=== PATIENT | female | born 1935 | race Caucasian/White ===

== ENCOUNTER 2017-12-18 17:28 | Outpatient (REF) | payer MEDICARE, OTHER, SELFPAY ==
[2017-12-18 20:45] LABS: Anion Gap 9.5 mmol/L (3-11); BUN 31 mg/dL (7-18); CO2 28.5 mmol/L (21.0-32.0); CREATININE 1.09 mg/dL (0.55-1.02); Calcium 9.8 mg/dL (8.5-10.1); Chloride 99 mmol/L (98-107); Glucose 92 mg/dL (70-100); Potassium 3.8 mmol/L (3.5-5.1); Sodium 137 mmol/L (136-145); TSH 2.47 uIU/mL (0.358-3.74)
== END 2017-12-18 17:48 ==
LOC: NCHCN 17:28
PROVIDERS: PCP Internal Medicine; Visit Provider Internal Medicine
DX: E78.5 Hyperlipidemia, unspecified (principal); I10 Essential (primary) hypertension
CPT/HCPCS: 80048; 84443

== ENCOUNTER → 2018-07-02 09:56 | Outpatient (BNVA) | payer MEDICARE, OTHER, SELFPAY | PROVIDERS: PCP Internal Medicine; Visit Provider Orthopaedic Surgery | DX: Z47.1 Aftercare following joint replacement surgery (principal); Z96.643 Presence of artificial hip joint, bilateral; Z96.651 Presence of right artificial knee joint | CPT/HCPCS: 99211; 99212 ==

== ENCOUNTER 2020-06-29 14:30 | Outpatient (CLI) | payer MEDICARE, OTHER, SELFPAY | END 2020-06-29 14:31 | LOC: OCO 07-22 07:05 | PROVIDERS: PCP Internal Medicine; Visit Provider Physician Assistant Surgical | DX: M54.5 Low back pain (principal); M25.551 Pain in right hip; M25.552 Pain in left hip; Z96.643 Presence of artificial hip joint, bilateral; Z96.651 Presence of right artificial knee joint | CPT/HCPCS: 99213 ==

== ENCOUNTER 2020-07-07 17:32 | Outpatient (REF) | payer MEDICARE, OTHER, SELFPAY ==
[2020-07-07 19:01] LABS: Hemoglobin A1C 5.5 % (<5.7)
[2020-07-07 19:03] LABS: Anion Gap 10.7 mmol/L (3-11); BUN 29 mg/dL (7-18); CO2 27.3 mmol/L (21.0-32.0); CREATININE 1.2 mg/dL (0.55-1.02); Calcium 9.8 mg/dL (8.5-10.1); Chloride 102 mmol/L (98-107); Glucose 102 mg/dL (74-106); Sodium 140 mmol/L (136-145); TSH 2.21 uIU/mL (0.36-3.74)
== END 2020-07-07 17:33 | disposition home or self-care (01) ==
LOC: NCHCN 17:32
PROVIDERS: PCP Internal Medicine; Visit Provider Internal Medicine
DX: I10 Essential (primary) hypertension (principal); R73.03 Prediabetes
CPT/HCPCS: 80048; 83036; 84443

== ENCOUNTER 2020-12-23 03:17 | Outpatient (CLI) | payer MEDICARE, OTHER, SELFPAY ==
[2020-12-23 12:35] LABS: Source Nasal/Nares
[2020-12-23 20:16] LABS: COVID-19 PCR Negative (Negative)
== END 2020-12-23 03:18 | disposition home or self-care (01) ==
LOC: LBO 03:17
PROVIDERS: PCP Internal Medicine; Visit Provider Ophthalmology
DX: Z20.822 Contact with and (suspected) exposure to COVID-19 (principal); Z01.818 Encounter for other preprocedural examination
CPT/HCPCS: 87635

== ENCOUNTER 2020-12-26 10:17 | Day surgery (SDC) | payer MEDICARE, OTHER, SELFPAY ==
--- NOTE | 2020-12-26 06:42 | ANES.PREOP_ITS ---
General Info Date of Service Date Performed: 12/26/20 Height: 5 ft 6 in Weight: 78.018 kg Body Mass Index (BMI): 27.7 Surgical Procedure: Operation Date: 12/26/20 13:40 Proposed Procedures Side Surgeon p Intraocular Stent Placement/IOL Implant Left Jere Michael MD Meds Allergies and Home Medications Allergies Allergy/AdvReac Type Severity Reaction Status Date / Time bee venom protein (honey bee) Allergy Severe Anaphylaxsi Unverified 12/26/20 10:54 s latex Allergy Intermediate Itching Unverified 12/26/20 10:54 lisinopril Allergy Unknown Other (See Unverified 12/26/20 10:54 Comment) Sulfa (Sulfonamide AdvReac Intermediate Nausea Unverified 12/26/20 10:54 Antibiotics) Home Medication Medication Instructions Recorded aspirin [Aspir 81] 81 mg PO DAILY 06/15/16 atorvastatin [Lipitor] 40 mg PO DAILY 06/15/16 diltiazem HCl [Taztia Xt] 360 mg PO DAILY 06/15/16 epinephrine [Epipen 2-Angelo] 0.3 mg IM DIRECTED 06/15/16 losartan 100 mg PO HS 06/15/16 triamterene-hydrochlorothiazid 1 ea PO DAILY 06/15/16 calcium carbonate-vitamin D3 1 ea PO DAILY 06/18/16 [Calcium 600 + Vit D Softgel] diphenhydramine HCl 25 mg PO PRN PRN 06/18/16 latanoprost 1 drp OU HS 06/18/16 lcaxppnz-dma-AP-lycopen-lutein 1 ea PO DAILY 06/18/16 [Centrum Silver Tablet] dorzolamide-timolol 1 drp OPHTHALMIC (EYE) BID 12/26/20 Current Visit Medications: Current Medications Generic Name Dose Route Start Last Admin Trade Name Freq PRN Reason Stop Dose Admin Acetaminophen 1,000 mg 12/26/20 06:00 Acetaminophen 500 Mg Tab PO Q4H PRN PRN Miscellaneous Medication 0 ml 12/26/20 06:00 Prednisolone 1%, Moxifloxacin 0.5%, Nepafenac 0.1% 5ml Btl OS DIRECTED [facility] Miscellaneous Medication 0 ml 12/26/20 06:00 Tropicam./Phenyleph. (1/2.5%) 5 Ml Btl OS DIRECTED OBED Tetracaine HCl 0 ml 12/26/20 06:00 Tetracaine 0.5% 4 Ml Btl OS DIRECTED [facility] Active Problems Active Problems: Problem Status Onset Code Nuclear sclerotic cataract of left eye H25.12 Medical History Medical History (Updated 12/26/20 @ 10:54 by Amaya Lin) Cataract CKD (chronic kidney disease), stage II Depression Dysthymia Glaucoma HLD (hyperlipidemia) HTN (hypertension) Hx of ectopic HX: breast cancer Hymenoptera reaction Mitral regurgitation 1-2 plus=pt. states she has had this all her life, was told in the 80's never had any issues Osteopenia Surgical History Surgical History (Updated 12/26/20 @ 10:52 by Amaya Lin) History of arthroplasty of right knee Hx of appendectomy Hx of bilateral hip replacements Hx of mastectomy Tobacco Smoking/Tobacco Use Status: Former Tobacco Use Alcohol Alcohol Intake: current Alcohol intake frequency: 0-2 drinks per day Alcohol type: wine Substance Use Substance use: Never Substance use type: does not use Vital Signs and Lab Results Vital Signs Most Recent Vital Signs in EMR: Temp Pulse Resp BP Pulse Ox 36.2 C L 66 16 157/80 H 99 12/26/20 11:03 12/26/20 11:03 12/26/20 11:03 12/26/20 11:03 12/26/20 11:03 Lab Results Blood Type / Crossmatch: No Data to Display Complete Blood Count: No Data to Display Complete Metabolic Panel: No Data to Display Liver Function Panel: No Data to Display Coagulation Panel: No Data to Display Cardiac Panel: No Data to Display Arterial Blood Gas: No Data to Display Venous Blood Gas: No Data to Display Pancreas Panel: No Data to Display Thyroid Panel: No Data to Display Infectious Disease: Coronavirus (COVID-19)(PCR) Negative (Negative) 12/23/20 10:22 12/23/20 Coronavirus 2019 Source Nasal/Nares 12/23/20 10:22 12/23/20 Blood Cultures: No Data to Display Toxicology Panel: No Data to Display Anesthesia Assessment and Plan Anesthesia History Personal History: No History of Anesthesia Complications Family History: No Family History of Anesthesia Complications Exercise Tolerance Exercise Tolerance: Metabolic Equivalents>4 Cardiac & Pulmonary Exam Cardiac Exam: Normal S1/S2 Heart Sounds Pulmonary Exam: Clear Bilateral Breath Sounds Implantable Cardiac Device Does patient have a Pacemaker or an ICD?: No Airway Exam Known Difficult Airway: No Mallampati Class: 2 Mouth Opening: Normal (> 3cm) Thyromental Distance: Greater than 3 cm Neck Range of Motion: Full ROM Neck Circumference: Normal Teeth Condition: Removable Dentures/Plates Lower ASA Classification ASA Score: ASA 2 Emergency Case?: No NPO Status NPO Status: NPO Clears >2 hours, Solids >8 hours Anesthesia Plan Resuscitation Status: Full Code Anesthesia Technique: MAC Anesthesia Airway Planned: Natural Airway Monitors Used: Standard Monitors Preoperative Comments:: 85 yo female for cataract removal. Sig PMHx: CKD II, HTN (dilt/losartan), mitral regurg. plan: MAC/No MKO
[2020-12-26 10:51] VITALS: BMI 27.7
[2020-12-26] MEDS: Tropicam./Phenyleph. (1/2.5%) 5 ML BTL OS ×3 (11:00→11:20)
[2020-12-26 11:03] VITALS: BP 157/80; PULSE 66; RESP 16; TEMP 36.2; O2SAT 99
[2020-12-26] MEDS: Tetracaine 0.5% 4 ML BTL OS (11:43)
[2020-12-26] MEDS: Lidocaine 2% Jelly 6 ML SYR (11:43)
[2020-12-26] MEDS: Povidone-Iodine Ophth 30 ML BTL (11:44)
[2020-12-26] MEDS: Lidocaine 1% Pres-Free 5 ML VIAL (11:50)
[2020-12-26] MEDS: Balanced Salt Soln.-PLUS 500 ML BAG (11:54)
[2020-12-26] MEDS: Duovisc Viscoelastic System EACH 1 EACH (11:55)
[2020-12-26 12:17] VITALS: BP 151/77; PULSE 79; RESP 1; TEMP 36.5; O2SAT 97
--- NOTE | 2020-12-26 12:18 | PDOC.DSDIS_ITS ---
Discharge Plan Disposition Patient Disposition: HOME Condition: Good Discharge Details Attending Provider: Jere Michael Primary Care Provider: Newton Stephenson [place] Meds and New Rx's Prescriptions: No Action atorvastatin [Lipitor] 40 MG tablet 40 mg PO DAILY RF: 0 diltiazem HCl [Taztia XT] 360 MG capsule,extended release 24 hr 360 mg PO DAILY RF: 0 aspirin [Aspir-81] 81 MG tablet,delayed release (DR/EC) 81 mg PO DAILY RF: 0 triamterene-hydrochlorothiazid 1 EACH capsule 1 ea PO DAILY RF: 0 epinephrine [EpiPen 2-Angelo] 0.3 MG/0.3 ML auto-injector 0.3 mg IM DIRECTED RF: 0 losartan 100 MG tablet 100 mg PO HS RF: 0 latanoprost 2.5 ML drops 1 drp OU HS RF: 0 diphenhydramine HCl 25 MG capsule 25 mg PO PRN PRNRF: 0 Centrum Silver 1 EACH tablet 1 ea PO DAILY RF: 0 calcium carbonate-vitamin D3 [Calcium 600 with Vitamin D3] 1 EACH capsule 1 ea PO DAILY RF: 0 dorzolamide-timolol 22.3-6.8 mg/mL drops 1 drp ophthalmic (eye) BID RF: 0 Discharge Instructions Stand Alone Forms: Post-op Topical Cataract, [place] Gutiérrez (DSU) Discharge Orders Discharge Orders: Discharge Order (Routine); Ordered 12/26/20 Ordered By: Jere Michael DS: Diagnosis Discharge Diagnosis (1) Nuclear sclerotic cataract of left eye: Status: Resolved (2) Primary open-angle glaucoma, left eye, moderate stage: Status: Chronic
--- NOTE | 2020-12-26 12:19 | ROE_ITS ---
Date of service: 12/26/20 Time of Service: 12:19 Operative Note Operative Note DATE OF PROCEDURE: 12/26/20 PRE-OP DIAGNOSIS: Nuclear cataract, left eye Primary open-angle glaucoma, left eye, moderate stage PROCEDURE: 1. Cataract extraction using phacoemulsification with intraocular lens implant, left eye 2. Insertion of multiple anterior segment aqueous drainage devices (Glaukos iStent inject x 2) into trabecular meshwork, left eye SURGEON: Jere Michael ANESTHESIA TYPE: Local By Surgeon and MAC Refer to Anesthesia Record ESTIMATED BLOOD LOSS: 0 PATHOLOGY: none sent COMPLICATIONS: None Patient was transported to: same day Patient's condition: stable Implants: 1. [employer] / [employer] Tecnis ZCB00 intraocular lens 2. Glaukos iStent inject trabecular micro-bypass stent x 2 Indications: 1. Progressive decreased vision due to cataract, left eye 2. Primary open angle glaucoma, left eye, moderate stage Procedure Description: CATARACT SURGERY OPERATIVE REPORT PREOPERATIVE DIAGNOSIS: Nuclear cataract, left eye Primary open-angle glaucoma, left eye, moderate stage POSTOPERATIVE DIAGNOSIS: Same OPERATION: 1. Cataract extraction using phacoemulsification with posterior chamber intraocular lens implant, left eye. 2. Insertion of multiple anterior segment aqueous drainage devices (Glaukos iStent inject x 2) into trabecular meshwork, left eye IOL: IOL Product Development Engineer/Model: [employer] Vision / YEN Tecnis ZCB00 IOL Power: + 20.0 diopters IOL Serial Number: [id number] Optic Diameter: 6.0mm Haptic/Overall Diameter: 13.0mm PHACO INFO: Drew Centurion Vision System with OZil and Active Fluidics Cumulative Dispersed Energy (CDE): 13.83 seconds TRABECULAR MICRO-BYPASS STENT INFO: Glaukos iStent inject x 2 Reference Number: [id number] Serial Number: [id number] SURGEON: Jere Michael MD, JULY ANESTHESIA: Monitored Anesthesia Care (MAC), with local sub-tenon's anesthetic infiltration COMPLICATIONS: None SPECIMENS: None INDICATIONS FOR PROCEDURE: The patient is an 85-year-old lady with history of bilateral cataracts and glaucoma. She has developed a significant nuclear cataract in the left eye and desires cataract surgery and attempt to improve and maximize her vision. She has a history of primary open-angle glaucoma, left eye worse than right, currently managed on 3 medications in both eyes. The option of cataract surgery was offered to the patient and she wished to proceed. In addition, the option of microtrabecular bypass stent at the time of cataract surgery was also offered to the patient and she wished to proceed with this as well. PROCEDURE: The correct surgical eye was identified and marked as the left eye and the pupil was dilated in the preoperative area using mydriatics and cycloplegics. The dilated pupil size was 8.0 mm. She elected to proceed without oral sedation. The patient was brought to the operating room where cardiopulmonary monitoring was instituted and surgical time-out was performed, confirming the correct operative eye and IOL power. Topical anesthesia was administered and ophthalmic povidone-iodine 5% was instilled into the conjunctival fornices. Lidocaine gel was applied to the cornea and the natalie-ocular area was prepped with Betadine 10% solution and draped in the usual sterile fashion for intraocular surgery, including an aperture drape. A Tegaderm transparent film dressing was cut in half and used to cover the lashes and lid margins. Care was taken to sequester the lashes and lid margins under the Tegaderm dressing. A lid speculum was placed between the lids of the operative eye and the Giancarlo-Nelida operating microscope was maneuvered into position. Reji scissors were then used to make a conjunctival buttonhole approximately 6mm posterior to the limbus in the inferonasal quadrant. Blunt dissection was carried out to expose bare sclera, and a blunt-tipped sub-tenon?s anesthesia cannula was introduced and passed posteriorly along the globe where non- preserved plain lidocaine was injected into posterior sub-Tenon?s space. A sideport knife was used to make a paracentesis port superior/superiortemporally. Intraocular phenylephrine/lidocaine was injected into the anterior chamber. The anterior chamber was then filled with viscoelastic. A 2.4mm keratome knife was used to create a half-thickness groove at the limbus and then to construct a three-plane near-clear corneal tunnel extending 2.0mm into clear cornea in the temporal position. . A flap was raised on the anterior capsule and capsulorhexis forceps were used to complete a continuous curvilinear capsulorhexis of 5.0 mm. Balanced salt solution was then used to perform cortical cleaving hydrodissec tion and nuclear hydrodelineation until the lens could be freely rotated within the capsular bag. The lens nucleus was then disassembled and removed within the capsular bag and iris plane using phacoemulsification. Residual cortical material was removed using the 45-degree angled silicone I/A tip with 0.3mm port. The posterior capsule was carefully polished to remove as much residual lens epithelial cells as safely possible. The capsular bag was then inflated and the anterior chamber deepened with viscoelastic. The lens implant described above was inserted into the capsular bag using the YEN Alamo Injector. A Kuglen hook was used to dial the IOL into position. The anterior chamber was then slightly over-filled with viscoelastic. The microsope and the patient's head were tilted into the ideal position for viewing of the anterior chamber angle. Viscoelastic was placed on the cornea followed by a surgical gonionlens, and the anterior chamber angle landmarks were identified. The Cloudjutsuukos iStent inject handpiece was introduced into the anterior chamber and the insertion sleeve was retracted once the injector was distal to the pupillary margin. The trocar was advanced through the central portion of the trabecular meshwork and into the back wall of Schlemm's canal in the superiornasal quadrant, with care taken to ensure the micro-insertion tube was perpendicular to the trabecular meshwork. The trabecular meshwork was lightly dimpled and the stent was injected without difficulty. The same procedure was then performed in the inferiornasal quradrant. Both stents were then examined and noted to be in good position within the trabecular meshwork. [] The microscope and the patients head were returned to the normal coaxial position. Viscoelatic was then removed from the anterior chamber using the I/A handpiece. The lens implant was noted to center nicely within the capsular bag. The incisions were stromally hydrated, and the anterior chamber was reformed using BSS. Then 0.5cc of moxifloxacin 1.0mg/ml were injected into the capsular bag and anterior chamber. The incisions were checked with a Weck spear and found to be secure. Several drops of ophthalmic povidone-iodine 5% were then applied to the eye followed by two drops of Imprimis combination prednisolone/moxifloxacin/nepafenac solution. The drapes were removed and a clear plastic protective eye shield was placed over the eye. The patient was then returned to Same Day Surgery in stable condition.
--- NOTE | 2020-12-26 12:25 | W.ANESPOSTOP ---
Postoperative Evaluation Date, Time and Location Date Performed: 12/26/20 Time Performed: 12:26 Patient Location: Day Surgery Unit Vital Signs Most Recent Imported Vital Signs: Most Recent Vital Signs Temp Pulse Resp BP Pulse Ox 36.5 C 79 1 L 151/77 H 97 12/26/20 12:17 12/26/20 12:17 12/26/20 12:17 12/26/20 12:17 12/26/20 12:17 Pain Score Most Recent Pain Score: Most Recent Pain Score Pain Level 0 12/26/20 12:17 Assessment Mental Status: Awake (Alert & Oriented to Patient Baseline) Airway and Respiratory Function: Patent airway with normal (patient baseline) respiratory exam Cardiovascular Function: Hemodynamically Stable Hydration Status: Adequately Hydrated Nausea & Vomiting: No Nausea or Vomiting Pain: Pt. Denies Any Pain Peripheral Nerve Block: Patient did not receive a nerve block
== END 2020-12-26 12:40 | disposition home or self-care (01) ==
PROVIDERS: PCP Internal Medicine; Visit Provider Ophthalmology
PROC: (CPT 66984; principal; 2020-12-26 13:30)
DX: H25.12 Age-related nuclear cataract, left eye (principal); H40.1122 Primary open-angle glaucoma, left eye, moderate stage
CPT/HCPCS: 66984; 0191T; V2632; C1783

== ENCOUNTER 2021-04-13 20:03 | Outpatient (REF) | payer MEDICARE, OTHER, SELFPAY ==
[2021-04-13 19:27] LABS: HGB 14.2 g/dL (11.2-15.7); MCHC 32.3 % (32.0-36.0); MCV 96.1 fL (80-95); MPV 9.7 fL (8.0-11.0); Platelet Count 325 10^3/uL (130-400); RBC 4.58 10^6/uL (3.93-5.22); RDW 13.1 % (11.7-14.6); RDW-SD 46.9 fL; WBC 6.33 10^3/uL (4.4-10.8)
[2021-04-13 19:38] LABS: ALT 26 U/L (14-59); Anion Gap 9.3 mmol/L (3-11); BUN 25 mg/dL (7-18); CO2 25.7 mmol/L (21.0-32.0); CREATININE 1.1 mg/dL (0.55-1.02); Calcium 9.3 mg/dL (8.5-10.1); Calculated LDL 87 mg/dL (<100); Chloride 104 mmol/L (98-107); Cholesterol 194 mg/dL (<200); Estimated GFR 47.32 (mL/min/1.73m2); Glucose 113 mg/dL (74-106); HDL Cholesterol 89 mg/dL (40-60); Potassium 3.7 mmol/L (3.5-5.1); Sodium 139 mmol/L (136-145); Triglyceride 94 mg/dL (<150)
== END 2021-04-13 20:04 | disposition home or self-care (01) ==
LOC: LBN 20:03
PROVIDERS: PCP Internal Medicine; Visit Provider Internal Medicine
DX: I10 Essential (primary) hypertension (principal); F32.0 Major depressive disorder, single episode, mild; N18.2 Chronic kidney disease, stage 2 (mild); H26.9 Unspecified cataract
CPT/HCPCS: 80048; 80061; 85027; 84460

== ENCOUNTER 2021-04-21 01:53 | Outpatient (CLI) | payer MEDICARE, OTHER, SELFPAY ==
[2021-04-21 12:23] LABS: Source Nasal/Nares
[2021-04-21 17:20] LABS: COVID-19 PCR Negative (Negative)
== END 2021-04-21 01:54 | disposition home or self-care (01) ==
LOC: LBO 01:53
PROVIDERS: PCP Internal Medicine; Visit Provider Ophthalmology
DX: Z20.822 Contact with and (suspected) exposure to COVID-19 (principal); Z01.818 Encounter for other preprocedural examination
CPT/HCPCS: 87635; U0005

== ENCOUNTER 2021-04-24 10:57 | Day surgery (SDC) | payer MEDICARE, OTHER, SELFPAY ==
[2021-04-24 11:38] VITALS: BP 150/71; PULSE 74; RESP 16; TEMP 36.7; O2SAT 99
[2021-04-24] MEDS: Tropicam./Phenyleph. (1/2.5%) 5 ML BTL OD ×3 (11:38→11:57)
--- NOTE | 2021-04-24 11:56 | ANES.PREOP_ITS ---
General Info Date of Service Date Performed: 04/24/21 Height: 5 ft 6 in Weight: 79.1 kg Body Mass Index (BMI): 28.1 Surgical Procedure: Operation Date: 04/24/21 14:40 Proposed Procedure Side Surgeon p Cataract Extraction with IOL Implant w/ Glaucoma Stent Right Jere Michael MD Meds Allergies and Home Medications Allergies Allergy/AdvReac Type Severity Reaction Status Date / Time bee venom protein (honey bee) Allergy Severe Anaphylaxsi Unverified 04/24/21 11:34 s latex Allergy Intermediate Itching Unverified 04/24/21 11:34 lisinopril Allergy Unknown Other (See Unverified 04/24/21 11:34 Comment) Sulfa (Sulfonamide AdvReac Intermediate Nausea Unverified 04/24/21 11:34 Antibiotics) Home Medication Medication Instructions Recorded aspirin 81 mg tablet,delayed 81 mg PO DAILY 06/15/16 release (Aspir-) atorvastatin 40 mg tablet (Lipitor) 40 mg PO DAILY 06/15/16 diltiazem HCl 360 mg capsule,24 360 mg PO DAILY 06/15/16 hr,extended release (Taztia XT) epinephrine 0.3 mg/0.3 mL 0.3 mg IM DIRECTED 06/15/16 injection, auto-injector (EpiPen 2-Angelo) losartan 100 mg tablet 100 mg PO HS 06/15/16 triamterene 37.5 1 ea PO DAILY 06/15/16 mg-hydrochlorothiazide 25 mg capsule diphenhydramine HCl 25 mg capsule 25 mg PO PRN PRN 06/18/16 latanoprost 0.005 % eye drops 1 drp OU HS 06/18/16 hrevcmcc-dea-wbajf acid 0.4 1 ea PO DAILY 06/18/16 mg-lycopene 300 mcg-lutein 250 mcg tablet (Centrum Silver) dorzolamide 22.3 mg-timolol 6.8 1 drp OPHTHALMIC (EYE) BID 12/26/20 mg/mL eye drops Current Visit Medications: Current Medications Generic Name Dose Route Start Last Admin Trade Name Freq PRN Reason Stop Dose Admin Acetaminophen 1,000 mg 04/24/21 06:00 Acetaminophen 500 Mg Tab PO Q4H PRN PRN Miscellaneous Medication 0 ml 04/24/21 06:00 Prednisolone 1%, Moxifloxacin 0.5%, Nepafenac 0.1% 5ml Btl OD DIRECTED [facility] Miscellaneous Medication 0 ml 04/24/21 06:00 04/24/21 11:50 Tropicam./Phenyleph. (1/2.5%) 5 Ml Btl OD 1 drp DIRECTED OB[facility] Administration Tetracaine HCl 0 ml 04/24/21 06:00 Tetracaine 0.5% 4 Ml Btl OD DIRECTED OBED PFSH Active Problems Active Problems: Problem Status Onset Code Nuclear sclerotic cataract of left eye H25.12 Primary open-angle glaucoma, left eye, moderate stage H40.1122 Medical History Medical History Cataract CKD (chronic kidney disease), stage II Depression Dysthymia Glaucoma HLD (hyperlipidemia) HTN (hypertension) Hx of ectopic HX: breast cancer Hymenoptera reaction Mitral regurgitation 1-2 plus=pt. states she has had this all her life, was told in the 80's never had any issues Osteopenia Surgical History Surgical History (Updated 04/24/21 @ 11:33 by Amaya Lin) History of arthroplasty of right knee Hx of appendectomy Hx of bilateral hip replacements Hx of cataract surgery Hx of mastectomy Tobacco Smoking/Tobacco Use Status: Former Tobacco Use Alcohol Alcohol Intake: current Alcohol intake frequency: 0-2 drinks per day Alcohol type: wine Substance Use Substance use: Never Substance use type: does not use Vital Signs and Lab Results Vital Signs Most Recent Vital Signs in EMR: Most Recent Vital Signs Temp Pulse Resp BP Pulse Ox 36.7 C 74 16 150/71 H 99 04/24/21 11:38 04/24/21 11:38 04/24/21 11:38 04/24/21 11:38 04/24/21 11:38 Lab Results Blood Type / Crossmatch: No Data to Display Complete Blood Count: White Blood Count 6.33 10^3/uL (4.4-10.8) 04/13/21 11:55 04/13/21 Red Blood Count 4.58 10^6/uL (3.93-5.22) 04/13/21 11:55 04/13/21 Hemoglobin 14.2 g/dL (11.2-15.7) 04/13/21 11:55 04/13/21 Hematocrit 44.0 % (36.0-46.0) 04/13/21 11:55 04/13/21 Platelet Count 325 10^3/uL (130-400) 04/13/21 11:55 04/13/21 Complete Metabolic Panel: 2 Sodium Level 139 mmol/L (136-145) 04/13/21 11:55 04/13/21 Potassium Level 3.7 mmol/L (3.5-5.1) 04/13/21 11:55 04/13/21 Chloride Level 104 mmol/L (98-107) 04/13/21 11:55 04/13/21 Carbon Dioxide Level 25.7 mmol/L (21.0-32.0) 04/13/21 11:55 04/13/21 Blood Urea Nitrogen 25 mg/dL (7-18) H 04/13/21 11:55 04/13/21 Creatinine 1.1 mg/dL (0.55-1.02) H 04/13/21 11:55 04/13/21 Estimated GFR/1.73 m2 47.32 (mL/min/1.73m2) 04/13/21 11:55 04/13/21 Calcium Level 9.3 mg/dL (8.5-10.1) 04/13/21 11:55 04/13/21 Glucose Level 113 mg/dL (74-106) H 04/13/21 11:55 04/13/21 Liver Function Panel: Alanine Aminotransferase (ALT/SGPT) 26 U/L (14-59) 04/13/21 11:55 04/13/21 Coagulation Panel: No Data to Display Cardiac Panel: No Data to Display Arterial Blood Gas: No Data to Display Venous Blood Gas: No Data to Display Pancreas Panel: No Data to Display Thyroid Panel: No Data to Display Infectious Disease: Coronavirus (COVID-19)(PCR) Negative (Negative) 04/21/21 08:49 04/21/21 Coronavirus 2019 Source Nasal/Nares 04/21/21 08:49 04/21/21 Blood Cultures: No Data to Display Toxicology Panel: No Data to Display Anesthesia Assessment and Plan Anesthesia History Personal History: No History of Anesthesia Complications Family History: No Family History of Anesthesia Complications Exercise Tolerance Exercise Tolerance: Metabolic Equivalents>4 Cardiac & Pulmonary Exam Cardiac Exam: Normal S1/S2 Heart Sounds Pulmonary Exam: Clear Bilateral Breath Sounds Implantable Cardiac Device Does patient have a Pacemaker or an ICD?: No Airway Exam Known Difficult Airway: No Mallampati Class: 2 Mouth Opening: Normal (> 3cm) Thyromental Distance: Greater than 3 cm Neck Range of Motion: Full ROM Neck Circumference: Normal Teeth Condition: Removable Dentures/Plates Lower ASA Classification ASA Score: ASA 2 Emergency Case?: No NPO Status NPO Status: NPO Clears >2 hours, Solids >8 hours Anesthesia Plan Resuscitation Status: Full Code Anesthesia Technique: MAC Anesthesia Airway Planned: Natural Airway Monitors Used: Standard Monitors Preoperative Comments:: 85 yo female for cataract removal. Sig PMHx: CKD II, HTN (dilt/losartan), mitral regurg. plan: MAC would like MKO this time.
[2021-04-24 12:46] VITALS: BMI 28.1
[2021-04-24] MEDS: Lidocaine 2% Jelly 6 ML SYR (12:53)
[2021-04-24] MEDS: Tetracaine 0.5% 4 ML BTL OD (12:53)
[2021-04-24] MEDS: Balanced Salt Soln.-PLUS 500 ML BAG (13:04)
[2021-04-24] MEDS: Duovisc Viscoelastic System EACH 1 EACH (13:05)
[2021-04-24] MEDS: Povidone-Iodine Ophth 30 ML BTL (13:07)
[2021-04-24 13:34] VITALS: BP 134/77; PULSE 68; RESP 16; TEMP 36.7; O2SAT 96
--- NOTE | 2021-04-24 13:36 | W.PM.DSUDISC ---
Discharge Plan Disposition Patient Disposition: HOME Condition: Good Discharge Details Attending Provider: Jere Michael Primary Care Provider: Newton Stephenson Home Meds and New Rx's Prescriptions: No Action atorvastatin [Lipitor] 40 MG tablet 40 mg PO DAILY 0RF diltiazem HCl [Taztia XT] 360 MG capsule,extended release 24 hr 360 mg PO DAILY 0RF aspirin [Aspir-81] 81 MG tablet,delayed release (DR/EC) 81 mg PO DAILY 0RF triamterene-hydrochlorothiazid 1 EACH capsule 1 ea PO DAILY 0RF epinephrine [EpiPen 2-Angelo] 0.3 MG/0.3 ML auto-injector 0.3 mg IM DIRECTED 0RF losartan 100 MG tablet 100 mg PO HS 0RF latanoprost 2.5 ML drops 1 drp OU HS 0RF diphenhydramine HCl 25 MG capsule 25 mg PO PRN PRN0RF Centrum Silver 1 EACH tablet 1 ea PO DAILY 0RF dorzolamide-timolol 22.3-6.8 mg/mL drops 1 drp ophthalmic (eye) BID 0RF Discharge Instructions Stand Alone Forms: Post-op Topical Cataract, [place] Gutiérrez ([facility]U) Discharge Orders Discharge Orders: Discharge Order (Routine); Ordered 04/24/21 Ordered By: Jere Michael DS: Diagnosis Discharge Diagnosis (1) Nuclear sclerotic cataract of right eye: Status: Resolved (2) Posterior subcapsular age-related cataract, right eye: Status: Resolved (3) Primary open angle glaucoma (POAG) of right eye, mild stage: Status: Chronic
--- NOTE | 2021-04-24 13:38 | W.ANESPOSTOP ---
Postoperative Evaluation Date, Time and Location Date Performed: 04/24/21 Time Performed: 13:39 Patient Location: Day Surgery Unit Vital Signs Most Recent Imported Vital Signs: Most Recent Vital Signs Temp Pulse Resp BP Pulse Ox 36.7 C 68 16 134/77 96 04/24/21 13:34 04/24/21 13:34 04/24/21 13:34 04/24/21 13:34 04/24/21 13:34 Pain Score Most Recent Pain Score: Most Recent Pain Score Pain Level 0 04/24/21 13:34 Assessment Mental Status: Awake (Alert & Oriented to Patient Baseline) Airway and Respiratory Function: Patent airway with normal (patient baseline) respiratory exam Cardiovascular Function: Hemodynamically Stable Hydration Status: Adequately Hydrated Nausea & Vomiting: No Nausea or Vomiting Pain: Pt. Denies Any Pain Peripheral Nerve Block: Patient did not receive a nerve block
--- NOTE | 2021-04-24 13:39 | W.PM.OP ---
Date of service: 04/24/21 Time of Service: 13:39 Operative Note Operative Note DATE OF PROCEDURE: 04/24/21 PRE-OP DIAGNOSIS: Nuclear/posterior subcapsular cataract, right eye Primary open-angle glaucoma, right eye, mild stage POST-OP DIAGNOSIS: same PROCEDURE: 1. Cataract extraction using phacoemulsification with intraocular lens implant, right eye 2. Insertion of multiple anterior segment aqueous drainage devices (Glaukos iStent inject x 2) into trabecular meshwork, right eye SURGEON: Jere Michael ANESTHESIA TYPE: Local By Surgeon and MAC Refer to Anesthesia Record PATHOLOGY: none sent COMPLICATIONS: None Patient was transported to: same day Patient's condition: stable Implants: 1. [employer] / [employer] Tecnis ZCB00 intraocular lens 2. Glaukos iStent inject trabecular micro-bypass stent x 2 Indications: 1. Progressive decreased vision due to cataract, right eye 2. Primary open angle glaucoma, right eye Procedure Description: CATARACT SURGERY OPERATIVE REPORT PREOPERATIVE DIAGNOSIS: Nuclear/posterior subcapsular cataract, right eye Primary open-angle glaucoma, right eye, mild stage POSTOPERATIVE DIAGNOSIS: Same OPERATION: 1. Cataract extraction using phacoemulsification with posterior chamber intraocular lens implant, right eye. 2. Insertion of multiple anterior segment aqueous drainage devices (Glaukos iStent inject x 2) into trabecular meshwork, right eye IOL: IOL Custom Garment Designer/Model: [employer] / YEN Tecnis ZCB00 IOL Power: + 21.0 diopters IOL Serial Number: [id number] Optic Diameter: 6.0mm Haptic/Overall Diameter: 13.0mm PHACO INFO: Drew [employer] Vision System with OZil and Active [employer]uidics Cumulative Dispersed Energy (CDE): 9.61 seconds TRABECULAR MICRO-BYPASS STENT INFO: Glaukos iStent inject x 2 Reference Number: [id number] Serial Number: [id number] SURGEON: Jere Michael MD, JULY ANESTHESIA: Monitored Anesthesia Care (MAC), with local sub-tenon's anesthetic infiltration COMPLICATIONS: None SPECIMENS: None INDICATIONS FOR PROCEDURE: The patient is an 86-year-old lady with history of bilateral cataracts and glaucoma. She has developed a significant nuclear/posterior subcapsular cataract in the right eye and also has mild stage primary open-angle glaucoma controlled on 3 medications. She presents for cataract surgery with lens implantation of the right eye with implantation of glaucoma stent at the time of cataract. PROCEDURE: The correct surgical eye was identified and marked as the right eye and the pupil was dilated in the preoperative area using mydriatics and cycloplegics. The dilated pupil size was 6.0 mm. Oral sedation was administered in the form of one half of an Imprimis MKO Melt (midazolam 3mg/ketamine 25mg/ondansetron 2mg). The patient was brought to the operating room where cardiopulmonary monitoring was instituted and surgical time-out was performed, confirming the correct operative eye and IOL power. Topical anesthesia was administered and ophthalmic povidone-iodine 5% was instilled into the conjunctival fornices. Lidocaine gel was applied to the cornea and the natalie-ocular area was prepped with Betadine 10% solution and draped in the usual sterile fashion for intraocular surgery, including an aperture drape. A Tegaderm transparent film dressing was cut in half and used to cover the lashes and lid margins. Care was taken to sequester the lashes and lid margins under the Tegaderm dressing. A lid speculum was placed between the lids of the operative eye and the Drew [employer] Revalia operating microscope was maneuvered into position. Reji scissors were then used to make a conjunctival buttonhole approximately 6mm posterior to the limbus in the inferonasal quadrant. Blunt dissection was carried out to expose bare sclera, and a blunt-tipped sub-tenon?s anesthesia cannula was introduced and passed posteriorly along the globe where non-preserved plain lidocaine was injected into posterior sub-Tenon?s space. A sideport knife was used to make a paracentesis port inferiortemporally. Intraocular phenylephrine/lidocaine was injected into the anterior chamber. The anterior chamber was then filled with viscoelastic. A 2.4mm keratome knife was used to create a half-thickness groove at the limbus and then to construct a three-plane near-clear corneal tunnel extending 2.0mm into clear cornea in the superiortemporal position. . A flap was raised on the anterior capsule and capsulorhexis forceps were used to complete a continuous curvilinear capsulorhexis of 5.0 mm. Balanced salt solution was then used to perform cortical cleaving hydrodissection and nuclear hydrodelineation until the lens could be freely rotated within the capsular bag. The lens nucleus was then disassembled and removed within the capsular bag and iris plane using phacoemulsification. Residual cortical material was removed using the 45-degree angled silicone I/A tip with 0.3mm port. The posterior capsule was carefully polished to remove as much residual lens epithelial cells as safely possible. The capsular bag was then inflated and the anterior chamber deepened with viscoelastic. The lens implant described above was inserted into the capsular bag using the YEN [place] Injector. A Kuglen hook was used to dial the IOL into position. The anterior chamber was then slightly over-filled with viscoelastic. The microsope and the patient's head were tilted into the ideal position for viewing of the anterior chamber angle. Viscoelastic was placed on the cornea followed by a surgical gonionlens, and the anterior chamber angle landmarks were identified. The [employer] iStent inject handpiece was introduced into the anterior chamber and the insertion sleeve was retracted once the injector was distal to the pupillary margin. The trocar was advanced through the central portion of the trabecular meshwork and into the back wall of Schlemm's canal in the inferonasal quadrant, with care taken to ensure the micro-insertion tube was perpendicular to the trabecular meshwork. The trabecular meshwork was lightly dimpled and the stent was injected without difficulty. The same procedure was then performed in the superiornasal quadrant. Both stents were then examined and noted to be in good position within the trabecular meshwork. The microscope and the patients head were returned to the normal coaxial position. Viscoelatic was then removed from the anterior chamber using the I/A handpiece. The lens implant was noted to center nicely within the capsular bag. The incisions were stromally hydrated, and the anterior chamber was reformed using BSS. Then 0.4cc of moxifloxacin 1.5mg/ml were injected into the capsular bag and anterior chamber. The incisions were checked with a Weck spear and found to be secure. Several drops of ophthalmic povidone-iodine 5% were then applied to the eye followed by two drops of Imprimis combination prednisolone/moxifloxacin/nepafenac solution. The drapes were removed and a clear plastic protective eye shield was placed over the eye. The patient was then returned to Same Day Surgery in stable condition.
[2021-04-24 14:01] VITALS: BP 124/72; PULSE 70; RESP 16; TEMP 36.7; O2SAT 96
--- NOTE | 2021-04-24 14:27 | W.ANESPOSTOP ---
Postoperative Evaluation Date, Time and Location Date Performed: 04/24/21 Time Performed: 14:27 Patient Location: Day Surgery Unit Vital Signs Most Recent Imported Vital Signs: Most Recent Vital Signs Temp Pulse Resp BP Pulse Ox 36.7 C 70 16 124/72 96 04/24/21 14:01 04/24/21 14:01 04/24/21 14:01 04/24/21 14:01 04/24/21 14:01 Most Recent Vital Signs Temp Pulse Resp BP Pulse Ox 36.7 C 68 16 134/77 96 04/24/21 13:34 04/24/21 13:34 04/24/21 13:34 04/24/21 13:34 04/24/21 13:34 Most Recent Manually Entered Vital Signs: Adult Blood Pressure: 177/87 Heart Rate: 72 Respirations: 10 Oxygen Saturation (%): 99 Temperature (C): 36.6 C Pain Score (0-10 Scale): 0 Pain Score Most Recent Pain Score: Most Recent Pain Score Pain Level 0 04/24/21 14:01 Assessment Mental Status: Awake (Alert & Oriented to Patient Baseline) Airway and Respiratory Function: Patent airway with normal (patient baseline) respiratory exam Cardiovascular Function: Hemodynamically Stable Hydration Status: Adequately Hydrated Nausea & Vomiting: No Nausea or Vomiting Pain: Pt. Denies Any Pain Peripheral Nerve Block: Patient did not receive a nerve block
[2021-04-24 14:28] VITALS: BP 177/87; PULSE 72; RESP 10; TEMPC 36.6; O2SAT 99
== END 2021-04-24 14:09 | disposition home or self-care (01) ==
PROVIDERS: PCP Internal Medicine; Visit Provider Ophthalmology
PROC: (CPT 66991; principal; 2021-04-24 14:30)
DX: H25.041 Posterior subcapsular polar age-related cataract, right eye (principal); H40.1111 Primary open-angle glaucoma, right eye, mild stage
CPT/HCPCS: 66991; 66984; V2632; C1783

== ENCOUNTER 2022-08-03 15:36 | Outpatient (REF) | payer MEDICARE, OTHER, SELFPAY ==
[2022-08-03 19:16] LABS: Anion Gap 8.4 mmol/L (3-11); BUN 36 mg/dL (7-18); CO2 26.6 mmol/L (21.0-32.0); CREATININE 1.3 mg/dL (0.55-1.02); Calcium 9.5 mg/dL (8.5-10.1); Chloride 105 mmol/L (98-107); Glucose 121 mg/dL (74-106); Potassium 4.2 mmol/L (3.5-5.1); Sodium 140 mmol/L (136-145)
== END 2022-08-03 15:37 | disposition home or self-care (01) ==
LOC: NCHCN 15:36
PROVIDERS: PCP Internal Medicine; Visit Provider Internal Medicine
DX: N18.2 Chronic kidney disease, stage 2 (mild) (principal)
CPT/HCPCS: 80048

== ENCOUNTER 2023-05-10 15:24 | Outpatient (REF) | payer MEDICARE, OTHER, SELFPAY ==
[2023-05-10 19:02] LABS: ALT 26 U/L (14-59); Anion Gap 9.7 mmol/L (3-11); BUN 33 mg/dL (7-18); CO2 27.3 mmol/L (21.0-32.0); CREATININE 1.4 mg/dL (0.55-1.02); Calcium 9.6 mg/dL (8.5-10.1); Calculated LDL 77 mg/dL (<100); Chloride 106 mmol/L (98-107); Cholesterol 173 mg/dL (<200); Estimated GFR 36.64 (mL/min/1.73m2); Glucose 103 mg/dL (74-106); HDL Cholesterol 81 mg/dL (40-60); Sodium 143 mmol/L (136-145); Triglyceride 79 mg/dL (<150)
[2023-05-10 19:14] LABS: Creatine Kinase 144 U/L (26-192)
== END 2023-05-10 15:25 | disposition home or self-care (01) ==
LOC: NCHCN 15:24
PROVIDERS: PCP Internal Medicine; Visit Provider Internal Medicine
DX: E78.5 Hyperlipidemia, unspecified (principal); R79.89 Other specified abnormal findings of blood chemistry
CPT/HCPCS: 80048; 80061; 82550; 84460

== ENCOUNTER 2024-06-05 23:20 | Outpatient (REF) | payer MEDICARE, OTHER, SELFPAY ==
[2024-06-05 19:04] LABS: ALT 25 U/L (14-59); Anion Gap 9.1 mmol/L (3-11); BUN 29 mg/dL (7-18); CO2 25.9 mmol/L (21.0-32.0); CREATININE 1.3 mg/dL (0.55-1.02); Calcium 10.1 mg/dL (8.5-10.1); Chloride 105 mmol/L (98-107); Creatine Kinase 195 U/L (26-192); Glucose 98 mg/dL (74-106); Potassium 4.2 mmol/L (3.5-5.1); Sodium 140 mmol/L (136-145)
[2024-06-05 19:19] LABS: Calculated LDL 73 mg/dL (<100); Cholesterol 176 mg/dL (<200); HDL Cholesterol 91 mg/dL (>or=50); Triglyceride 62 mg/dL (<150)
== END 2024-06-05 23:21 | disposition home or self-care (01) ==
LOC: NCHCN 23:20
PROVIDERS: PCP Internal Medicine; Visit Provider Internal Medicine
DX: I10 Essential (primary) hypertension (principal); E78.5 Hyperlipidemia, unspecified
CPT/HCPCS: 80048; 80061; 82550; 84460